=== PATIENT | female | born 1975 | race African-American/Black ===

== ENCOUNTER 2023-03-13 23:29 | Emergency (ER) | payer BC ==
[~2023-03-13] VITALS: Ht 154.9 cm; Wt 67.0 kg
[2023-03-13 23:36] VITALS: BP 118/72; PULSE 91; RESP 18; TEMP 98.4; O2SAT 99
[2023-03-14] MEDS: SODIUM CHLORIDE 0.9% 1,000 ML IV ONE (01:04)
[2023-03-14] MEDS: ONDANSETRON HCL 4MG/2ML INJ IV ONE (01:04)
[2023-03-14 01:08] LABS: HEMOGLOBIN. 12.6 g/dL (12.0-16.0); MEAN CORPUSCULAR HEMOGLOBIN 23.7 pg (28.0-32.0); MEAN CORPUSCULAR HGB CONC 32.2 g/dL (31.0-37.0); MEAN CORPUSCULAR VOLUME 73.8 fL (81.0-99.0); PLATELET 328 x1000/uL (130-400); RED BLOOD CELL COUNT 5.29 mill/uL (4.2-5.4); RED CELL DISTRIBUTION WIDTH 18.2 % (11.6-14.6); WHITE BLOOD COUNT 10.3 x1000/uL (4.5-11.0)
[2023-03-14 01:17] LABS: DIFFERENTIAL COMMENT 1
[2023-03-14 01:23] LABS: ALANINE AMINOTRANSFERASE 10 IU/L (10-49); ALBUMIN 4.4 g/dL (3.2-4.8); ASPARTATE AMINOTRANSFERASE 15 IU/L (<34); BILIRUBIN TOTAL 1.1 mg/dL (0.1-1.0); CALCIUM 9.5 mg/dL (8.7-10.4); CARBON DIOXIDE 28 mEq/L (21-32); CHLORIDE 107 mEq/L (98-107); CREATININE 0.7 mg/dL (0.6-1.0); GLUCOSE 118 mg/dL (70-105); POTASSIUM 3.7 mEq/L (3.5-5.1); PROTEIN TOTAL 7.9 g/dL (6.0-8.3); SODIUM 138 mEq/L (136-145); UREA NITROGEN BLOOD 12 mg/dL (9-23)
[2023-03-14 01:25] LABS: ETHANOL BLOOD < 10 mg/dL (<10)
[2023-03-14] MEDS ORDERED: ONDA4TAB50 MT (02:18)
[2023-03-14] MEDS ORDERED: ACET-2708 MT (02:18)
[2023-03-14 02:55] LABS: HCG SCREEN NEGATIVE
[2023-03-14 08:50] LABS: MICROCYTOSIS 1+; PLATELET ESTIMATE NORMAL
[2023-03-14 08:51] LABS: HYPOCHROMASIA 1+
== END 2023-03-14 03:01 | disposition home or self-care (01) ==
LOC: ER 23:35
DX: R55 Syncope and collapse (principal); R11.0 Nausea; A09 Infectious gastroenteritis and colitis, unspecified
CPT/HCPCS: 36415; 93005; 99285; 80053; 80320; 84703; 83690; 85025; 70450; 96374; J7030; J2405; Z7610 ×2; G0480